=== PATIENT | female | born 1985 | race Hispanic/Latino ===

== ENCOUNTER 2016-07-11 00:53 | Emergency (ER) | payer OTHER ==
[~2016-07-11] VITALS: Ht 157.5 cm; Wt 81.8 kg
[~2016-07-11 00:53] MED LIST: IBUP-1827 PO
[2016-07-11 01:01] VITALS: BP 126/74; PULSE 76; RESP 18; O2SAT 98
--- NOTE | 2016-07-11 01:15 | ED.REPORT ---
HPI-Preg Under 20 Weeks Date of Service Jul 11, 2016 ED Provider: Natali Bustos MD This is a 30 year old female who is 11 weeks , , presenting with vaginal bleeding that began 1 hour ago. Associated symptoms include nausea and lower abdominal cramping. Denies vomiting, diarrhea, constipation, SOB, lightheadedness, or dysuria. LMP 04/13/16. Reports multiple episodes with similar symptoms previously during this . Nursing Notes Stated Complaint: VAGINAL BLEEDING, 11 WEEKS Chief Complaint: Female Abdominal Pain Nursing Notes Reviewed: Yes Allergies: Coded Allergies: No Known Allergies (Verified , 06/04/16) Scheduled PRN Ibuprofen (Ibuprofen) 600 Mg Tablet 600 MG PO QID PRN PRN For Pain Ibuprofen (Ibuprofen) 600 Mg Tablet 600 MG PO QID PRN PRN For Pain General Time Seen by Provider: 01:16 Chief Complaint Vaginal bleeding Context: : Known 1st trim Hx Obtained From: Patient Arrived By: Walk-in Onset Occurred: Just prior to arrival Severity: Current: No pain currently Pertinent Negative: Pt denies other symptoms Recent Healthcare: No recent doctor visit, No recent hospitalization Similar Sx Previous: No Past Medical History Past Medical History Abdominal abscess Past Surgical History Reports: Smoking History Unknown if Ever Smoker Social History Other Social History: Good social support, Local resident Ambulatory Status Independent Review of Systems Constitutional: Denies: Chills, Fever Respiratory: Denies: Non-productive cough, Shortness of breath GI: Reports: Nausea, Denies: Abdominal pain, Vomiting Female: Reports: , Vaginal bleeding - abnl, Denies: Dysuria Complete sys rev & neg: except as marked. Physical Exam Initial Vital Signs Vital Signs (First) Date Time Temp Pulse Resp B/P Pulse Ox O2 Delivery O2 Flow Rate FiO2 07/11/16 01:01 36.9 76 18 126/74 98 Room Air Initial VS: Reviewed Head / Eyes: Atraumatic, Normocephalic, PERRL ENT: Mucous membranes moist, Conjunctiva normal, No scleral icterus Neck: Supple, Non-tender, Full range of motion Respiratory: Breath sounds normal, Clear to auscultation, No respiratory distress Cardiovascular: Regular rate & rhythm, Heart sounds normal, Intact distal pulses Extremities: Vascular intact, Neuro intact, No swelling, No tenderness Skin: Warm, Dry, No cyanosis Neurologic: Alert, Oriented, Nonfocal Psychiatric: Mood/affect normal, Behavior normal, Normal thought content General/Constitutional: Awake, Alert Appearance / Presentation: Positive: Obese Abdomen: Soft, No guarding, No rebound Tenderness/Guarding/Rebound: Positive: Tender suprapubic (mild ) Female Genitourinary: Exam deferred : Exam deferred Interpretation & Diagnostics US PELVIS Conclusion: Single living IUP Radiologist: Jonathan Castano MD Lab Results Interpretation Result Diagram: 07/11/16 0125 07/11/16 0125 Test 07/11/16 01:25 07/11/16 01:38 White Blood Count 11.4th/mm3 (3.8-10.1) Red Blood Count 4.44mil/mm3 (3.90-5.20) Hemoglobin 12.3g/dL (12.0-15.6) Hematocrit 36.1% (35.0-46.0) Mean Corpuscular Volume 81.3fL (81-100) Mean Corpuscular Hemoglobin 27.7pg (27.0-35.0) Mean Corpuscular Hemoglobin Concent 34.1% (32.0-37.0) Red Cell Distribution Width 13.3% (12.3-15.4) Platelet Count 237bil/L (150-400) Sodium Level 136mEq/L (134-144) Potassium Level 3.5mEq/L (3.5-5.2) Chloride Level 101mEq/L (97-108) Carbon Dioxide Level 21mmol/L (18-29) Blood Urea Nitrogen 9mg/dL (6-20) Creatinine 0.50mg/dL (0.57-1.00) Estimat Glomerular Filtration Rate 209mL/min (>59) Glucose Level 118mg/dL (60-99) Calcium Level 9.3mg/dL (8.5-10.1) Total Bilirubin 0.2mg/dL (0.0-1.2) Aspartate Amino Transf (AST/SGOT) 12U/L (0-50) Alanine Aminotransferase (ALT/SGPT) 17U/L (0-32) Alkaline Phosphatase 61U/L (25-150) Total Protein 7.1g/dL (6.4-8.4) Albumin 3.8g/dL (3.4-5.0) HCG Beta Subunit [id number]/mL Hold Jay Top Tube Received (Received) Urine Color Yellow (YELLOW) Urine Appearance Hazy (CLEAR,HAZY) Urine pH 6.0 (5.0-8.0) Urine Specific [place] 1.026 (1.003-1.035) Urine Protein Negativemg/dL (NEG,TRACE) Urine Glucose (UA) Negativemg/dL (NEGATIVE) Urine Ketones Negativemg/dL (NEGATIVE) Urine Occult Blood Large (NEGATIVE) Urine Nitrite Negative (NEGATIVE) Urine Bilirubin Negative (NEGATIVE) Urine Urobilinogen Normalmg/dL (NORMAL) Urine Leukocyte Esterase Negative (NEGATIVE) Urine RBC 3-10/hpf (0-2) Urine WBC 0-5/hpf (0-5) Urine Epithelial Cells Many/hpf (NONE-MOD) Urine Crystals None seen (NONE SEEN) Urine Bacteria Moderate/hpf (NONE-FEW) Urine Hyaline Casts None/lpf (NONE) Urine Granular Casts None seen (NONE SEEN) Urine Waxy Casts None seen (NONE SEEN) Urine Red Blood Cell Casts None seen (NONE SEEN) Urine White Blood Cell Casts None seen (NONE SEEN) Urine Mucus Present (None Seen) Urine Trichomonas None seen (NONE SEEN) Urine Yeast None (NONE SEEN) Urine Culture Reflexed Indicated Re-Eval/Medical Decision Med Decision/Clinical Course 30-year-old here with vaginal bleeding and approximately 11 weeks . Differential diagnosis includes but is not limited to subchorionic hemorrhage versus placenta previa versus threatened miscarriage versus inevitable miscarriage. Labs are unremarkable. Patient's beta Quant is consistent with her estimated gestational age, and a transvaginal ultrasound showed a single live IUP with a low-lying placenta. She was given very strict return precautions and is amenable to discharge with follow-up with her [employer]. Re-Evaluation/Progress : Time of Eval: 03:11 Re-Evaluation/Progress Note: Discusssed US results and plan for d/c, pt understands and agrees with plan, all questions addressed. Counseled Regarding: Diagnosis, Lab results, Need for follow-up, When/why to return to ED Discharge & Departure Primary Impression: Weeks of gestation: 11 weeks Qualified Code: Z3A.[email or web address] - 11 weeks gestation of Additional Impression: Vaginal bleeding before 22 weeks gestation Disposition: Home Discharge Condition All VS Reviewed: Yes Condition: Stable Patient Instructions: (ED) Additional Instructions: Your ultrasound was normal today. Follow up with your primary care provider. Return to the emergency department for any new or worsening symptoms Referrals: Arron Arndt MD (PCP) Scribe Attestation Portions of this note were transcribed by Shaheen Allen. I, Dr. Bustos personally performed the history, physical exam and medical decision-making; I reviewed and confirmed the accuracy of the information in the transcribed note. Signed by: bing Romero. 07/10/2016, 02:00. Natali Bustos MD Jul 11, 2016 01:15 SHAHEEN ALLEN Jul 11, 2016 01:18
[2016-07-11 01:30] LABS: Mean Corpuscular Hemoglobin 27.7 pg (27.0-35.0); Mean Corpuscular Volume 81.3 fL (81-100)
[2016-07-11 02:01] LABS: APPEARANCE,URINE HAZY (CLEAR,HAZY); COLOR,URINE YELLOW (YELLOW)
[2016-07-11 02:02] LABS: OCCULT BLOOD,URINE LARGE (NEGATIVE); UROBILINOGEN,URINE NORMAL (NORMAL)
[2016-07-11 03:50] VITALS: BP 129/80; PULSE 93; RESP 18; O2SAT 94
--- NOTE | 2016-07-11 09:25 | DRSVH ---
PROCEDURE: US OB<14 WKS+OB TRANSVAG INDICATIONS: vag bld OUTSIDE/PRIOR DATING DATA: Last menstrual period (LMP): 04/13/16. LMP-based estimated date of delivery (MOODY): 01/18/17. First dating scan (date and location): 06/01/16. Estimated date of delivery (MOODY) from first dating scan: 01/29/17. TECHNIQUE: Real-time scanning was performed of the fetus and maternal pelvic organs, with image documentation. Endovaginal scanning was also performed to better visualize the fetus and maternal ovaries. COMPARISON: [facility], US, OB<14 WKS+OB TRANSVAG, 06/03/2016, 3:58. FINDINGS: Embryo: [employer] Ultrasound Procedure Report Early Gestation [facility] [place] Rump Length: 4.39 cm Gestational Age (CRL): 11 weeks, 2 days Summary Fetus Summary Heart Rate: 168 bpm Comments: A normal yolk sac is noted. No perigestational bleeds. Complete placenta previa noted at this time. Measurement variability in dating: +/- 4 weeks by LMP, +/- 7 days by mean sac diameter (use before 6 weeks gestation if crown-rump length not able to be measured), +/- 5 days by crown-rump length (6-12 weeks gestation). Maternal organs: Ovaries within normal limits. Limited images through the kidneys demonstrate no hy dronephrosis. IMPRESSION: 1. A single living intrauterine gestation with the estimated gestational age at 11 weeks 2 days by cr own rump length corresponding to ultrasound MOODY of 01/28/2017. 2. Complete placenta previa. Followup recommended. Dictated by: Gerson White [facility] Interpreted: Jeana Bean MD on 07/11/2016 at 9:22 Transcribed by: LAMBERT on 07/11/2016 at 9:25 Approved by: Jeana Bean M.D. on 07/11/2016 at 10:08
== END 2016-07-11 03:51 | disposition home or self-care (01) ==
LOC: SED 00:53
DX: O20.9 Hemorrhage in early pregnancy, unspecified (principal); Z3A.11 11 weeks gestation of pregnancy